=== PATIENT | female | born 1950 | race Caucasian/White ===

== ENCOUNTER → 2017-09-08 | Outpatient (CLI) | payer MEDICARE, OTHER ==
[~2017-09-08] MED LIST: ACET325 PO; ALBU3IS INH; ALBU90OI6 INH; AMIT50; ASPI81CH PO; ASPI81EC PO; CALC.25 PO; CHOL10002 PO; CITA20; CRUTCH2 USE; CYCL10; CYCL10 PO; Cascara Sagrad473 ML; Citrate Of Mag300 ML PO; DIPH50 PO; DULO30 PO; Dulcolax5 MG PO; ERGO50000 PO; FAMO20 PO; FERR325 PO; FISH1000 PO; FURO40 PO; GABA300 PO; GLIP5 PO; HYDCHL25 PO; HYDR-86; HYDRALAZINE; IBUHYD; LACT10SY PO; LAVAP17G PO; LISI20; LORA.5 PO; LORA1 PO; LOSA50; Lisinopril2.5 MG; METF500C PO; METO50ER PO; OMEP20ER; PANT40 PO; PREG150 PO; SULTRIDS PO; Sulfamethoxazo1 EAC4 PO; Synthroid25 MCG PO; TOCO400 PO; TRAM50 PO; VERA80; VICODIN ES 7.51 EACH PO; Xyzal5 MG
[2017-09-08 14:59] LABS: Percent Saturation 22.4 % (15.0-50.0)
== END ==
LOC: LAB SHORT 13:21
PROVIDERS: Internal Medicine Hematology & Oncology
DX: D50.9 Iron deficiency anemia, unspecified (principal); E11.29 Type 2 diabetes mellitus with other diabetic kidney complication; D63.8 Anemia in other chronic diseases classified elsewhere
CPT/HCPCS: 82728; 83036; 83540; 83550

== ENCOUNTER → 2017-12-08 | Outpatient (CLI) | payer MEDICARE, OTHER ==
[2017-12-08 17:25] LABS: Albumin, Blood 3.4 g/dL (3.4-5.0); Bilirubin, Total 0.3 mg/dL (0.1-1.0); Bun/Creatinine Ratio 26.3 (12.0-20.0); Calcium, Blood 9.3 mg/dL (8.5-10.1); Creatinine, Blood 1.75 mg/dL (0.40-1.00); Globulin, Blood 3.5 g/dL (2.2-4.0); Potassium, Blood 3.7 mmol/L (3.5-5.5); Total Protein, Blood 6.9 g/dL (6.4-8.2)
== END | disposition home or self-care (01) ==
LOC: LAB 12:00 → LAB SHORT 12:00
PROVIDERS: Internal Medicine Hematology & Oncology
DX: R60.9 Edema, unspecified (principal); D63.8 Anemia in other chronic diseases classified elsewhere
CPT/HCPCS: 80053

== ENCOUNTER → 2017-12-28 | Outpatient (CLI) | payer MEDICARE, OTHER ==
[2017-12-28 12:48] LABS: Albumin, Blood 3.5 g/dL (3.4-5.0); Anion Gap 8 mmol/L (6-16); Blood Urea Nitrogen 41 mg/dL (8-24); Bun/Creatinine Ratio 21.9 (12.0-20.0); CO2, Blood 40 mmol/L (21-32); Calcium, Blood 8.9 mg/dL (8.5-10.1); Chloride, Blood 91 mmol/L (98-108); Creatinine, Blood 1.87 mg/dL (0.40-1.00); Glomerular Filtration Rate 29 (60-); Glucose, Blood 88 mg/dL (70-99); Phosphorus, Blood 3.5 mg/dL (2.5-4.9); Potassium, Blood 3.5 mmol/L (3.5-5.5); Sodium, Blood 139 mmol/L (136-145)
== END ==
LOC: LAB 10:00 → LAB SHORT 10:00
PROVIDERS: Internal Medicine Nephrology
DX: N18.3 Chronic kidney disease, stage 3 (moderate) (principal); D63.1 Anemia in chronic kidney disease
CPT/HCPCS: 80069

== ENCOUNTER → 2018-01-28 | Outpatient (CLI) | payer MEDICARE, OTHER ==
[2018-01-28 16:51] LABS: Percent Saturation 19.3 % (15.0-50.0)
[2018-01-28 17:19] LABS: Albumin, Blood 3.4 g/dL (3.4-5.0); Albumin/Globulin Ratio 1.1 (0.8-1.8); Bilirubin, Total 0.4 mg/dL (0.1-1.0); Calcium, Blood 8.8 mg/dL (8.5-10.1); Creatinine, Blood 2.05 mg/dL (0.40-1.00); Globulin, Blood 3.2 g/dL (2.2-4.0); Potassium, Blood 3.4 mmol/L (3.5-5.5); Total Protein, Blood 6.6 g/dL (6.4-8.2)
== END | disposition home or self-care (01) ==
LOC: LAB 13:10 → LAB SHORT 13:10
PROVIDERS: Internal Medicine Hematology & Oncology
DX: D51.8 Other vitamin B12 deficiency anemias (principal); D50.9 Iron deficiency anemia, unspecified
CPT/HCPCS: 80053; 82607; 82746; 83540; 83550

== ENCOUNTER → 2018-03-08 | Outpatient (CLI) | payer MEDICARE, OTHER ==
[2018-03-08 12:56] LABS: BASOPHILS ABSOLUTE AUTO 0.08 K/mm3 (0.00-0.23); BASOPHILS PERCENT AUTO 1 % (0-2); EOSINOPHILS ABSOLUTE AUTO 0.34 K/mm3 (0.00-0.68); EOSINOPHILS PERCENT AUTO 4 % (0-6); Hemoglobin 10.5 g/dL (11.5-16.0); IMMATURE GRAN ABSOLUTE AUTO 0.02 K/mm3 (0.00-0.10); IMMATURE GRAN PERCENT AUTO 0 % (0-1); LYMPHOCYTES ABSOLUTE AUTO 1.55 K/mm3 (0.84-5.20); LYMPHOCYTES PERCENT AUTO 19 % (21-46); MONOCYTES ABSOLUTE AUTO 0.98 K/mm3 (0.16-1.47); MONOCYTES PERCENT AUTO 12 % (4-13); Mean Corpuscular HGB 31.6 pg (26.0-34.0); Mean Corpuscular HGB Conc 31.8 g/dL (31.5-36.5); Mean Corpuscular Volume 99 fL (80-100); Mean Platelet Volume 10.5 fL (9.1-12.4); NEUTROPHILS ABSOLUTE AUTO 5.11 K/mm3 (1.96-9.15); NEUTROPHILS PERCENT AUTO 63 % (41-73); Platelet Count 191 K/mm3 (150-400); RDW Standard Deviation 51.1 fL (35.1-46.3); Red Blood Cell Count 3.32 M/mm3 (3.80-5.20); White Blood Cell Count 8.08 K/mm3 (4.00-11.30)
[2018-03-08 13:26] LABS: Alanine Aminotransfer (ALT/SGP 18 U/L (12-78); Albumin, Blood 3.2 g/dL (3.4-5.0); Albumin/Globulin Ratio 0.9 (0.8-1.8); Alk Phos 66 U/L (50-136); Anion Gap 8 mmol/L (6-16); Aspartate Aminotrans (AST/SGOT 20 U/L (12-37); Bilirubin, Total 0.4 mg/dL (0.1-1.0); Blood Urea Nitrogen 34 mg/dL (8-24); Bun/Creatinine Ratio 22.5 (12.0-20.0); CHOL/HDL RATIO 4.6; CO2, Blood 36 mmol/L (21-32); Calcium, Blood 8.7 mg/dL (8.5-10.1); Chloride, Blood 96 mmol/L (98-108); Cholesterol 147 mg/dL (50-200); Creatinine, Blood 1.51 mg/dL (0.40-1.00); Globulin, Blood 3.5 g/dL (2.2-4.0); Glomerular Filtration Rate 37 (60-); Glucose, Blood 97 mg/dL (70-99); HDL Cholesterol 32 mg/dL (>39); LDL/HDL RATIO 1.6; Low Density Lipoprotein Chol 52 mg/dL (0-110); Phosphorus, Blood 3.4 mg/dL (2.5-4.9); Potassium, Blood 3.8 mmol/L (3.5-5.5); Sodium, Blood 140 mmol/L (136-145); Total Protein, Blood 6.7 g/dL (6.4-8.2); Triglycerides 313 mg/dL (30-160); Very Low Density Lipoprot Chol 62 mg/dL (6-32)
== END | disposition home or self-care (01) ==
LOC: LAB 11:05 → LAB SHORT 11:05
PROVIDERS: Internal Medicine Nephrology
DX: E11.22 Type 2 diabetes mellitus with diabetic chronic kidney disease (principal); N18.4 Chronic kidney disease, stage 4 (severe); D63.1 Anemia in chronic kidney disease; E78.5 Hyperlipidemia, unspecified; E03.9 Hypothyroidism, unspecified
CPT/HCPCS: 80053; 80061; 82043; 83036; 84100; 84443; 85025